=== PATIENT | male | born 1955 | race Caucasian/White ===

== ENCOUNTER 2017-05-22 06:07 | Emergency (ER) | payer BC, OTHER ==
[~2017-05-22] VITALS: Ht 175.3 cm; Wt 119.8 kg
[~2017-05-22 06:07] MED LIST: BLOO-1585
[2017-05-22] MEDS ORDERED: cyclobenzaprine 10mg tablet PO ONE (07:20)
[2017-05-22] MEDS ORDERED: ONDA4TAB9 SL (07:21)
[2017-05-22] MEDS ORDERED: VAL5T PO (07:21)
[2017-05-22] MEDS ORDERED: METH500T PO (07:21)
[2017-05-22] MEDS ORDERED: METH4TAB3 PO (07:21)
[2017-05-22] MEDS ORDERED: HYDR-3965 PO (07:21)
[2017-05-22] MEDS ORDERED: dexamethasone 4mg tablet PO ONE (07:30)
[2017-05-22 08:47] VITALS: BP 139/87
== END 2017-05-22 08:49 | disposition home or self-care (01) ==
LOC: ER 06:08
DX: S16.1XXA Strain of muscle, fascia and tendon at neck level, initial encounter (principal); E11.9 Type 2 diabetes mellitus without complications; X58.XXXA Exposure to other specified factors, initial encounter; Y93.89 Activity, other specified; Y92.89 Other specified places as the place of occurrence of the external cause; Y99.8 Other external cause status
CPT/HCPCS: 99283; J8540

== ENCOUNTER 2017-11-01 09:55 | Emergency (ER) | payer BC, OTHER ==
[~2017-11-01] VITALS: Ht 604 cm; Wt 112.3 kg
[~2017-11-01 09:55] MED LIST changes: +METH4TAB3 PO; +METH500T PO
[2017-11-01 13:59] VITALS: BP 158/91
== END 2017-11-01 14:01 | disposition home or self-care (01) ==
LOC: ER 09:56
DX: S13.9XXA Sprain of joints and ligaments of unspecified parts of neck, initial encounter (principal); M25.562 Pain in left knee; M25.561 Pain in right knee; G89.29 Other chronic pain; E11.9 Type 2 diabetes mellitus without complications; I10 Essential (primary) hypertension; I25.10 Atherosclerotic heart disease of native coronary artery without angina pectoris; F17.200 Nicotine dependence, unspecified, uncomplicated; Z79.899 Other long term (current) drug therapy; Z95.1 Presence of aortocoronary bypass graft; W10.8XXA Fall (on) (from) other stairs and steps, initial encounter; Y93.89 Activity, other specified; Y92.89 Other specified places as the place of occurrence of the external cause; Y99.8 Other external cause status
CPT/HCPCS: 70450; 72125; 73560; 99284; L0172